=== PATIENT | male | born 1965 | race Caucasian/White ===

== ENCOUNTER 2017-02-11 04:44 | Day surgery (SDC) | payer MEDICARE, OTHER, SELFPAY ==
[2017-02-05 11:03] LABS: HEMOGLOBIN 15.5 g/dL (13.6-17.8)
--- NOTE | ~2017-02-11 | OP ---
Record Of Operation [facility] [address] [place]. 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 PROCEDURE: Right massive rotator cuff repair, three-tendon cuff repair, biceps tenodesis, extensive debridement and SAD. COMPLICATIONS: None. ANESTHESIA: General endotracheal with regional block per Anesthesia. INDICATIONS: This 51-year-old male is quadriparetic. He does have some use of his arms. He utilizes a wheelchair especially. He also has some electrical wheelchair. He was referred in by one of my partners after failing several injection attempts and attempts at nonoperative management. He was found to have a rotator cuff tear. We discussed the risks and benefits, especially for retear with his weightbearing status. He had failed nonoperative management and wished to proceed. DESCRIPTION OF PROCEDURE: The patient was induced in supine position. He was taken to the beach-chair position with care to maintain the cervical lordosis. A time-out protocol was enforced. Ancef was administered. Posterolateral portals were created for diagnostic arthroscopy, which revealed normal cartilaginous surfaces, type 1 tearing of the labrum, severe extra-articular biceps tenosynovitis with maceration of the biceps. There was a full-thickness tear involving the supra and infraspinatus. There was a tear of the upper cranial third of the subscap. The shoulder was positioned significantly anteriorly with a high inclination angle on the acromion. Extensive debridement: A 5.5 cannula was localized with an outside-in spinal technique. We debrided the intra-articular aspect of the biceps and then released it from the labrum. The superior labrum was then debrided superiorly, anteriorly, and posteriorly. We debrided the posterior synovitis and the anterior synovitis of the rotator interval and achieved hemostasis. We released adhesions in the articular margin of the cuff. We then made accessory portals and debrided the greater tuberosity of tissue and debrided down to a bleeding bony bed. The bone quality was good. There was severe extra-articular biceps tenosynovitis and the sheath was released here and copiously debrided down into the suprapectoral extra-articular space. Subacromial decompression: The arthroscopic cannula was then removed from the posterior shoulder and redirected in the subacromial space. The metal trocar was inserted and the Record Of Operation [facility] [address] [place]. [address] NAME: GILA BOLANOS : 69 STATUS : [facility] PAT#: [id number] AGE: 51 ADM/REG DATE : 02/11/17 MR#: [id number] REPORT SERV DATE: 02/11/17 DICTATED BY: DESTINEY HAYDEN DATE: 02/11/17 REPORT STATUS : Draft TRANSCRIBED BY: MODL DATE: 02/11/17 cannula was advanced out the anterior superior portal creating an outflow portal with outside in technique. A lateral portal was then created after spinal needle localization and a skin incision was made with an 11-blade. A large 5-5 shaver was then introduced into the joint from lateral and its tip was well visualized in the bursa. A bursectomy was performed going from lateral to medial allowing visualization of the rotator cuff and undersurface of the acromion. Coagulation was achieved with a 90-degree electrothermal device and the undersurface of the CA ligament was recessed with the tissue ablator. Bur was then introduced laterally and acromioplasty was performed smoothing the acromion from a type I morphology. This was begun laterally and advanced medially. The AC joint was then checked for spurs and these were smoothed. The soft tissue decompression was carried out anteriorly, laterally and superiorly. The scope was then withdrawn and placed into the lateral portal and the cutting-block technique was used with the instrumentation from posterior to assure that a perfect acromioplasty had been performed. Decompression then underwent the final check by forward flexing the arm again to check for impingement. Cuff repair: We assessed this cuff. We placed a traction stitch. There were some of the infraspinatus still attached. We started with a triple-loaded Healicoil posteriorly and passed with clever hooks to tack down the infraspinatus. We then placed a double-loaded Bio Corkscrew followed by a triple-loaded Bio-Corkscrew for the medial row. The posterior aspect of the cuff was then repaired with a 5 anchor transosseous equivalent technique with lateral row SwiveLocks laterally. We then went up to the anterior portion of the rotator interval and placed the triple-loaded Corkscrew and did three simples in this location to close down the anterior supraspinatus margin and that was 6 anchors. At that phase, we then placed another anchor in the cranial third of the subscap and repaired with clever hooks and the Expresso, the upper subscap, these were then tied. We left two of the long for use in the biceps tenodesis. Biceps tenodesis: We then forward flexed and externally rotated. We released the sheath copiously. We placed a double-loaded Lupine down low in the suprapectoral area and incorporating some of the pectoralis into the tendon with interlocking Rj-Cullen sutures. We then went up proximally and did another grasping stitch of the biceps with the top subcranial third of the subscap anchor and incorporated those for a two-fixation point biceps tenodesis repair with anchors. The scope was withdrawn. Portals were closed with Monocryl. Steri-Strips were applied. The patient tolerated the procedure well and was taken to the PACU in stable condition. POSTOPERATIVE PLAN: Nonweightbearing for six weeks and no active motion for six weeks. Elbow range of motion on pendulums only. BSS/MODL Destiney Hayden M.D. / [id number] Record Of Operation [address] [address] NAME: GILA BOLANOS : 69 STATUS : [facility] PAT#: [id number] AGE: 51 ADM/REG DATE : 02/11/17 MR#: [id number] REPORT SERV DATE: 02/11/17 DICTATED BY: DESTINEY HAYDEN DATE: 02/11/17 REPORT STATUS : Draft TRANSCRIBED BY: NAVID DATE: 02/11/17 CC: Melisa Stein M.D.
[~2017-02-11 04:44] MED LIST: ACET500CAP PO; ADVIL PO; BACLOFEN20 MG PO; ULTRAM50 PO; VIMOVO PO
== END 2017-02-11 13:49 ==
LOC: SDC 04:44
PROVIDERS: Orthopaedic Surgery Sports Medicine
PROC: 0LS14ZZ Reposition Right Shoulder Tendon, Percutaneous Endoscopic Approach (ICD-10-PCS; 2017-02-11)
PROC: 0RNJ4ZZ Release Right Shoulder Joint, Percutaneous Endoscopic Approach (ICD-10-PCS; 2017-02-11)
PROC: 0RBJ4ZZ Excision of Right Shoulder Joint, Percutaneous Endoscopic Approach (ICD-10-PCS; 2017-02-11)
PROC: 0LQ14ZZ Repair Right Shoulder Tendon, Percutaneous Endoscopic Approach (ICD-10-PCS; principal; 2017-02-11 06:45)
DX: G82.52 Quadriplegia, C1-C4 incomplete (principal); M75.121 Complete rotator cuff tear or rupture of right shoulder, not specified as traumatic; M75.21 Bicipital tendinitis, right shoulder; M25.311 Other instability, right shoulder; Z87.828 Personal history of other (healed) physical injury and trauma; Z90.49 Acquired absence of other specified parts of digestive tract; Z98.1 Arthrodesis status; Z83.3 Family history of diabetes mellitus; Z80.9 Family history of malignant neoplasm, unspecified; Z87.891 Personal history of nicotine dependence; Z99.3 Dependence on wheelchair; Z88.5 Allergy status to narcotic agent; Z88.6 Allergy status to analgesic agent; Z91.048 Other nonmedicinal substance allergy status; Z79.899 Other long term (current) drug therapy
CPT/HCPCS: 85014; 85018; A9270-GY; C1713; J0690; J1170; J2175; J2250; J2370; J2405; J2710; J3010